=== PATIENT | female | born 1980 | race Caucasian/White ===

== ENCOUNTER → 2016-07-06 | Outpatient (CLI) | payer MEDICAID ==
--- NOTE | 2016-07-06 16:11 | RADIOLOGY REPORT PS360 ---
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 Left atrium is mildly enlarged, left ventricle is normal size, there is mild concentric left ventricular hypertrophy, visually estimated ejection fraction 55% with no obvious regional wall motion abnormality. 2. The right atrium and right ventricle are normal size and contractility. 3. The aortic valve is minimally thickened and fibrosed. 4. There is a focal prolapse of the posterior mitral leaflet seen, there is no mitral stenosis. 5. The tricuspid valve is not well visualized. 6. The pulmonic valve is not well visualized. 7. No significant pericardial effusion noted. DOPPLER INTERROGATION: Doppler interrogation of the aortic mitral and tricuspid valvular presence of mild mitral and tricuspid regurgitation, tricuspid regurgitant jet velocity insufficient for calculation of the right ventricular systolic pressure, grade 1 diastolic dysfunction seen with tissue Doppler evidence of raised left atrial pressure. CONCLUSION: 1. Mildly enlarged left atrium, normal left ventricle size, mild concentric left ventricular hypertrophy, visually estimated ejection fraction 55% with no obvious regional wall motion abnormality, grade 1 diastolic dysfunction seen with tissue Doppler evidence of raised left atrial pressure. 2. Mild focal prolapse of the posterior mitral leaflet, associated with mild mitral regurgitation. 3. Mild tricuspid regurgitation. 4. No significant pericardial effusion noted.
--- NOTE | 2016-07-07 15:12 | RADIOLOGY REPORT PS360 ---
History and Indications: Dysrhythmia, obesity, hyperlipidemia, tobacco use, obesity, chest pain, shortness of breath, palpitations, syncope and fatigue Procedure: Patient received 0.4 mg of Lexiscan, resting heart rate was 65 resting blood pressure 179/43, with Lexiscan maximum heart rate achieved was 72 bpm which is less than 85% of the maximum predicted heart rate and a blood pressure was 123/34. With Lexiscan patient recommend chest pain or shortness of breath. Electrocardiogram: Resting electrocardiogram showed sinus rhythm intraventricular conduction delay excessive baseline artifact, nonspecific ST-T changes, with intravenous Lexiscan occasional premature ventricular complexes seen less than 1.[address] segment depression from the baseline EKG. The EKG portion of the Lexiscan is nondiagnostic Cardiac stress and resting SPECT imaging: Cardiac stress and the suspect images were obtained using technetium 99 Myoview 9.9 mCi at rest, and 30.8 mCi at stress, gated SPECT further analysis of segmental wall motion and calculation of the ejection fraction also done. Cardiac stress and the suspect images show decreased tracer activity in the anterolateral wall on the resting, suggestive of reversible ischemia however this study is technically limited due to patient's body habitus possibility of breast attenuation cannot be entirely excluded. Computer derived ejection fraction is 44% with no obvious regional wall motion abnormality, right ventricle is normal size and contractility. Conclusion: 1. The EKG portion of the Lexiscan is nondiagnostic baseline abnormal EKG. 2. Scintigraphic evidence of reversible ischemia involving the anterolateral wall, however this study is technically very limited secondary to patient's body habitus, possibility of the soft tissue attenuation from the breast cannot be excluded. 3. Computer derived ejection fraction 54% with no obvious regional wall motion abnormality, right ventricle is normal size and contractility. 4.. Equivocal Lexiscan Myoview study.
== END ==
LOC: RAD 11:33
DX: R00.1 Bradycardia, unspecified (principal); R53.83 Other fatigue; I44.0 Atrioventricular block, first degree
CPT/HCPCS: A9502; J2785